=== PATIENT | female | born 1945 | race Caucasian/White ===

== ENCOUNTER 2022-02-20 15:47 | Emergency (ER) | payer MEDICARE, OTHER ==
[~2022-02-20] VITALS: Ht 154.9 cm; Wt 99.8 kg
[2022-02-20] MEDS ORDERED: LISI20 PO (16:15)
[2022-02-20] MEDS ORDERED: Crestor20 MG PO (16:16)
[2022-02-20] MEDS ORDERED: JARDIANCE25 MG PO (16:17)
[2022-02-20] MEDS ORDERED: METO100ER PO (16:17)
[2022-02-20] MEDS ORDERED: XARELTO20 MG PO (16:18)
[2022-02-20] MEDS ORDERED: Percocet 5-3251 EACH PO (17:00)
== END 2022-02-20 17:25 | disposition home or self-care (01) ==
LOC: ER 15:47
DX: S42.211A Unspecified displaced fracture of surgical neck of right humerus, initial encounter for closed fracture (principal); I48.91 Unspecified atrial fibrillation; E11.9 Type 2 diabetes mellitus without complications; Z95.0 Presence of cardiac pacemaker; Z79.899 Other long term (current) drug therapy; Z79.01 Long term (current) use of anticoagulants; Z79.84 Long term (current) use of oral hypoglycemic drugs; W10.1XXA Fall (on)(from) sidewalk curb, initial encounter; Y92.59 Other trade areas as the place of occurrence of the external cause
CPT/HCPCS: 70450; 73060; 96374; 96375; 99284-25; A9270; J2270; J2405